=== PATIENT | female | born 1965 | race Two or more races ===

== ENCOUNTER 2023-07-18 17:06 | Emergency (ER) | payer OTHER ==
[~2023-07-18] VITALS: Ht 167.6 cm; Wt 77.1 kg
[2023-07-18 20:03] LABS: HEMATOCRIT 40.3 % (36.0-45.00); MEAN CELL VOLUME 90.9 fL (80.00-100.00); MEAN CORPUSCULAR HEMOGLOBIN 31.7 pg (27.00-32.0); MEAN CORPUSCULAR HGB CONC 34.8 g/dl (32.0-36.0); PLATELET COUNT 232 K/uL (150-450); RED BLOOD COUNT 4.43 M/uL (4.00-6.00); RED CELL DISTRIBUTION WIDTH 13.6 % (11.5-14.5)
[2023-07-18] MEDS ORDERED: BUTALB/ACETAMINOPHEN/CAFFEINE 1 TAB TABLET PO ONE (22:45)
== END 2023-07-18 22:58 | disposition home or self-care (01) ==
LOC: ER 17:06
PROVIDERS: Emergency Medicine
DX: B34.9 Viral infection, unspecified (principal); R53.81 Other malaise